=== PATIENT | female | born 1990 | race Caucasian/White ===

== ENCOUNTER 2018-11-12 16:00 | Emergency (ER) | payer OTHER ==
--- NOTE | 2018-11-12 16:27 | EDPHY ---
H & P Stated Complaint: Left ankle pain/skiing Time Seen by Provider: 11/12/18 16:25 HPI/ROS: CHIEF COMPLAINT: Left ankle pain HISTORY OF PRESENT ILLNESS: 28-year-old female presents with left ankle pain. She was skiing today, twisted her ankle and had sudden onset of left ankle pain. The pain increases with movement and she has been unable to bear weight. No other injuries. History of complex left ankle injury, just recovered. Is seeing a operations developer in [facility]. ROS: No numbness, weakness, excessive bleeding, syncopal episode, other injury. - Personal History LMP (Females 10-55): 1-7 Days Ago Current Tetanus/Diphtheria Vaccine: Yes - Medical/Surgical History Hx Asthma: No Hx Chronic Respiratory Disease: No Hx Diabetes: No Hx Cardiac Disease: No Hx Renal Disease: No Hx Cirrhosis: No Hx Alcoholism: No Other PMH: torn liagaments left foot, HTN, depression - Social History Smoking Status: Never smoked - Physical Exam Exam: Alert, pleasant Extremities: Left ankle with swelling over and posterior to the lateral malleolus. There is no posterior lateral malleolus tenderness, midfoot tenderness, or proximal fifth metatarsal tenderness. The ankle is stable and the Achilles tendon is intact. Vascular: Pedal pulses 2+ Neurologic: Ankle and foot with normal sensation and strength Skin: Intact Constitutional: Initial Vital Signs Temperature (C) 36.9 C 11/12/18 16:17 Heart Rate 83 11/12/18 16:17 Respiratory Rate 18 11/12/18 16:17 Blood Pressure 127/107 H 11/12/18 16:17 O2 Sat (%) 96 11/12/18 16:17 O2 Delivery Mode Room Air Allergies/Adverse Reactions: fentanyl Allergy (Verified 11/12/18 16:21) meperidine [From Demerol] Allergy (Verified 11/12/18 16:21) Home Medications: Medication Instructions Recorded Hydrochlorothiazide 11/12/18 Lisinopril 11/12/18 Medical Decision Making - Diagnostics Imaging Results: Imaging Impressions Ankle X-Ray 11/12/18 16:26 Impression: 1. No fracture. 2. Small osteochondral lesion in the talar dome. If patient has chronic ankle pain, recommend MRI ankle without contrast to further characterize. Imaging: I viewed and interpreted images myself ED Course/Re-evaluation: This patient presents with a left ankle sprain. A Rogers boot was given and crutches dispensed. Will follow up with her operations developer at home. - Data Points Medications Given: Discontinued Medications Ibuprofen (Motrin) 600 mg PO EDNOW ONE Stop: 11/12/18 17:20 Last Admin: 11/12/18 17:20 Dose: 600 mg Departure - Departure Disposition: Home, Routine, Self-Care Clinical Impression: Left ankle sprain Qualifiers: Encounter type: initial encounter Involved ligament of ankle: unspecified ligament Qualified Code(s): S93.402A - Sprain of unspecified ligament of left ankle, initial encounter Condition: Good Instructions: Ankle Sprain (ED), Crutch Instructions (ED) Additional Instructions: Take Tylenol 650 mg every 4 hours and/or Ibuprofen 600 mg every 8 hours with food as needed for pain. Apply ice for 30 minutes at a time; 2-3 times per day for the next 1-2 days. Follow up with Orthopedics in 2-4 weeks if symptoms persist or worsening at which time they will evaluate and recommend with you if conservative management versus adjuvant therapy like further imaging is indicated. The x-rays obtained in the emergency department today demonstrate no evidence of an obvious fracture. Referrals: NONE *PRIMARY CARE P,. [Primary Care Provider] - As per Instructions John James MD [Medical Doctor] - As per Instructions
[2018-11-12] MEDS ORDERED: IBUPROFEN 600 MG TAB PO ONE ×2 (17:19)
[2018-11-12 17:58] VITALS: BP 148/96
== END 2018-11-12 17:57 | disposition home or self-care (01) ==
DX: S93.402A Sprain of unspecified ligament of left ankle, initial encounter (principal); V00.321A Fall from snow-skis, initial encounter; Y93.23 Activity, snow (alpine) (downhill) skiing, snowboarding, sledding, tobogganing and snow tubing; Y92.838 Other recreation area as the place of occurrence of the external cause
CPT/HCPCS: L4386